=== PATIENT | male | born 1940 | race Caucasian/White ===

== ENCOUNTER 2025-03-16 10:47 | Emergency (ER) | payer OTHER ==
[~2025-03-16] VITALS: Ht 167.6 cm; Wt 79.3 kg
[2025-03-16] MEDS: SUCRALFATE 1 GM TAB PO ONE (11:22)
[2025-03-16] MEDS: PANTOPRAZOLE 40MG VIAL IV ONE (11:22)
[2025-03-16] MEDS: ASPIRIN 81 MG CHEWABLE TABLET PO ONE (11:22)
[2025-03-16 11:37] LABS: BASO # 0.0 10^3/uL (0.0-0.2); BASO % 0.4 % (0.0-1.0); EOS # 0.1 10^3/uL (0.0-0.5); EOS % 0.9 % (0.0-3.0); LYMPH # 3.1 10^3/uL (1.5-5.0); LYMPH % 34.4 % (24.0-44.0); MONO # 0.6 10^3/uL (0.0-0.8); MONO % 6.7 % (2.0-8.0); NEUTROPHILS # 5.1 10^3/uL (1.5-8.5); NEUTROPHILS % 57.4 % (36.0-66.0); PLATELET COUNT, AUTOMATED 361 10^3/uL (150-450)
[2025-03-16 11:50] LABS: ERYTHROCYTE SEDIMENTATION RATE 58 mm/hr (0-20)
[2025-03-16 12:03] LABS: ALT/SGPT 19.0 U/L (7.0-40); AST/SGOT 25.0 U/L (<34); CALCIUM LEVEL 9.2 MG/DL (8.3-10.6); CARBON DIOXIDE LEVEL 28.0 MMOL/L (20-31); CHLORIDE LEVEL 102.0 MMOL/L (98-107); CK-MB VALUE MASS 1.4 NG/ML (<3.6); CREATININE FOR GFR 1.09 MG/DL (0.70-1.30); GLOMERULAR FILTRATION RATE 67.3 (>35); POTASSIUM SERUM 4.4 MMOL/L (3.5-5.1); SODIUM LEVEL 139.0 MMOL/L (136-145)
[2025-03-16 12:05] LABS: FREE T4 1.28 NG/DL (0.89-1.76)
[2025-03-16 12:09] LABS: CPK CREATINE PHOSPHOKINASE 44.0 U/L (46-171); MB/CK RELATIVE INDEX 3.18 (< OR =4)
[2025-03-16 12:31] VITALS: TEMP 97
[2025-03-16 13:19] LABS: CK-MB VALUE MASS 1.0 NG/ML (<3.6); CPK CREATINE PHOSPHOKINASE 42.0 U/L (46-171); MB/CK RELATIVE INDEX 2.38 (< OR =4)
[2025-03-16] MEDS ORDERED: ISOVUE-370 76% 100 ML VIAL As Ordered ONE (14:37)
[2025-03-16] MEDS: diphenhydrAMINE 50 MG/ML VIAL IV STA (14:52)
[2025-03-16 20:07] VITALS: BP 105/81; O2SAT 95
== END 2025-03-16 22:23 | disposition short-term general hospital (02) ==
LOC: M ED 10:47
DX: I71.40 Abdominal aortic aneurysm, without rupture, unspecified (principal); I44.7 Left bundle-branch block, unspecified; R00.0 Tachycardia, unspecified; I45.81 Long QT syndrome; Z91.041 Radiographic dye allergy status
CPT/HCPCS: 71045; 71275; 74177; 80048; 80076; 82550; 82553; 83690; 84439; 84443; 84484; 85025; 85652; 93005; 93041; 94760; 96374; 96375; 99285; J1200; J2470; J2919; Q9967

== ENCOUNTER 2025-05-07 03:28 | Inpatient (IN) | payer OTHER ==
[~2025-05-07] VITALS: Ht 167.6 cm; Wt 77.6 kg
[2025-05-07] MEDS ORDERED: ISOVUE-370 76% 100 ML VIAL As Ordered ONE (03:36)
[2025-05-07] MEDS: diphenhydrAMINE 50 MG/ML VIAL IV ONE (03:39)
[2025-05-07] MEDS ORDERED: NOREPINEPHRINE 4MG IN D5 250ML 4 MG in IV 1 EA IV SCH (03:40)
[2025-05-07] MEDS: NS (Normal Saline) 0.9% 1,000 ML IV ONE (03:55)
[2025-05-07] MEDS ORDERED: HYOSCYAMINE SULFATE 0.125 MG SUBL TABLET PO PRN (04:25)
[2025-05-07] MEDS ORDERED: MORPHINE 2 MG/ML 1 ML VIAL IV PRN (04:25)
[2025-05-07 04:30] VITALS: BP 107/57; O2SAT 82
[2025-05-07 04:32] LABS: BASO # 0.0 10^3/uL (0.0-0.2); BASO % 0.2 % (0.0-1.0); EOS # 0.0 10^3/uL (0.0-0.5); EOS % 0.1 % (0.0-3.0); LYMPH # 7.0 10^3/uL (1.5-5.0); LYMPH % 40.3 % (24.0-44.0); MONO # 0.7 10^3/uL (0.0-0.8); MONO % 4.3 % (2.0-8.0); NEUTROPHILS # 9.4 10^3/uL (1.5-8.5); NEUTROPHILS % 54.1 % (36.0-66.0); PLATELET COUNT, AUTOMATED 529 10^3/uL (150-450)
[2025-05-07] MEDS: MORPHINE 4 MG/ML 1 ML VIAL IV PRN (04:36)
[2025-05-07 04:44] LABS: ALT/SGPT 13.0 U/L (7.0-40); AST/SGOT 30.0 U/L (<34); CALCIUM LEVEL 8.3 MG/DL (8.3-10.6); CARBON DIOXIDE LEVEL 14.0 MMOL/L (20-31); CHLORIDE LEVEL 99.0 MMOL/L (98-107); CK-MB VALUE MASS 1.2 NG/ML (<3.6); CREATININE FOR GFR 1.37 MG/DL (0.70-1.30); GLOMERULAR FILTRATION RATE 50.9 (>35); POTASSIUM SERUM 4.2 MMOL/L (3.5-5.1); SODIUM LEVEL 139.0 MMOL/L (136-145)
[2025-05-07 04:46] LABS: INR 1.36
[2025-05-07 04:51] LABS: CPK CREATINE PHOSPHOKINASE 59.0 U/L (46-171); MB/CK RELATIVE INDEX 2.03 (< OR =4)
[2025-05-07] MEDS ORDERED: HOME MED LIST COMPLETE! XX SCH (05:00)
[2025-05-07] MEDS ORDERED: FENTANYL DRIP LOCK BOX KEY 1 EACH XX PRN (05:00)
[2025-05-07] MEDS: fentaNYL CITRATE/NaCl 1,000 MCG in IV 1 EA IV SCH (06:37)
== END 2025-05-07 07:00 | disposition expired | DRG 951 ==
LOC: M ED 03:28 → M ED INP 04:23 → M MSPAV 05:11
PROVIDERS: ADMIT Internal Medicine; ATTEND Student in an Organized Health Care Education/Training Program
DX: Z51.5 Encounter for palliative care (principal); I71.30 Abdominal aortic aneurysm, ruptured, unspecified; K63.1 Perforation of intestine (nontraumatic); E87.20 Acidosis, unspecified; R57.9 Shock, unspecified; Z66 Do not resuscitate; Z91.041 Radiographic dye allergy status